=== PATIENT | male | born 1950 | race Caucasian/White ===

== ENCOUNTER → 2017-10-27 | Day surgery (SDC) | payer MEDICARE, OTHER ==
[~2017-10-27] VITALS: Ht 185.4 cm; Wt 150.9 kg
[~2017-10-27] MED LIST: BUPIVACAINE HCL PF 0.25% 30 ML VIAL ONE; CHLO25TA2 PO; CHLORHEXIDINE GLUCONATE 2 % 1 PACK (2 CLOTHS) TOPICAL PRN; CIPROFLOXACIN/DEXT 400 MG/200 ML IV SCH; DIVA500T3 PO; DULO1CAP3 PO; HYDR-3111 PO; LACTATED RINGER'S 1000 ML IV PRN; LIDOCAINE 1%/EPINEPHrine 1:100,000 SOLN 30 ML VIAL ONE; LIDOCAINE 2% JELLY 30 ML TUBE ONE; LISI-515 PO; METOPROLOL TARTRATE 25 MG TAB PO PRN; MIDAZOLAM HCL 2 MG/2 ML VIAL ONE; OMEP20TA93 PO; POVIDONE IODINE 5% (ANTISEPSIS KIT) 4 APPLICATIONS EACH NARE PRN; PROPOFOL 200 MG/20 ML AMP IV ONE; QUET1TAB9 PO; SODIUM CHLORID 0.9% 500 ML IV PRN; fentaNYL CITRATE 250 MCG/5 ML AMP ONE
[2017-10-27 06:41] LABS: AUTOMATED NEUTROPHIL # 5.1 TH/MM3 (1.8-7.7); BASOPHIL # 0.1 TH/MM3 (0-0.2); BASOPHIL % 1.2 % (0.0-2.0); EOSINOPHIL # 0.5 TH/MM3 (0-0.4); EOSINOPHIL % 4.8 % (0.0-4.0); HEMATOCRIT 40.5 % (39.0-51.0); HEMOGLOBIN 14.1 GM/DL (13.0-17.0); LYMPH % 29.7 % (9.0-44.0); LYMPHOCYTE # 2.9 TH/MM3 (1.0-4.8); MEAN CELL VOLUME 88.9 FL (80.0-100.0); MEAN CORPUSCULAR HEMOGLOBIN 31.1 PG (27.0-34.0); MEAN CORPUSCULAR HGB CONC 34.9 % (32.0-36.0); MEAN PLATELET VOLUME 10.3 FL (7.0-11.0); MONO % 11.4 % (0.0-8.0); MONOCYTE # 1.1 TH/MM3 (0-0.9); NEUT % 52.9 % (16.0-70.0); PLATELET COUNT 241 TH/MM3 (150-450); RED BLOOD COUNT 4.55 MIL/MM3 (4.50-5.90); RED CELL DISTRIBUTION WIDTH 13.7 % (11.6-17.2); WHITE BLOOD COUNT 9.7 TH/MM3 (4.0-11.0)
--- NOTE | 2017-10-27 08:20 | PD.OP ---
Operative Report Date of Surgery: Oct 27, 2017 Preoperative Diagnosis: Elevated PSA of 4.2 with PIRADS 4 lesion on MRI Postoperative Diagnosis: Same Procedure: Transrectal ultrasound with prostate needle biopsy Anesthesia: MAC Surgeon: Isac Florian Print Machine Operator(s): None Resident Surgeon: None Operation and Findings: 66-year-old male with elevated PSA of 4.2 and finding of a PI RADS for lesion involving the left mid gland noted on MRI. Decision was made for the patient undergo a prostate needle biopsy with transrectal ultrasound. Risk minutes were discussed preoperatively and he is willing to proceed. Patient received a fleets enema and preprocedure bites were given. The patient was brought to the operating room identified by myself as Charanjit Moran. He remained on the stretcher and was placed in the recumbent position. Volumetric measurements of the prostate were then taken with the volume of 31 cm. Calcifications were noted within the prostate gland. A 21 core biopsy specimen was then taken. Additional cores were taken on the left side of the gland. He tolerated the procedure well and was awoken and transferred currently in stable condition. He 'll follow-up in the office in a few weeks to review his pathology. Isac Florian DO Oct 27, 2017 08:20
[2017-10-27 09:10] VITALS: BP 107/54; PULSE 85; RESP 20; TEMP 97.8; O2SAT 94
--- NOTE | 2017-10-27 23:48 | EKG ---
Date Performed: 10/27/2017 Time Performed: 06:40:48 PTAGE: 66 years EKG: Sinus rhythm MODERATE INTRAVENTRICULAR CONDUCTION DELAY BORDERLINE ECG NO PREVIOUS TRACING DOCTOR: Joceline Almaraz Interpretating Date/Time 10/27/2017 23:48:03
== END | disposition home or self-care (01) ==
LOC: HSDC 05:43
PROVIDERS: ATTEND Urology
DX: C61 Malignant neoplasm of prostate (principal); N40.1 Benign prostatic hyperplasia with lower urinary tract symptoms; N13.8 Other obstructive and reflux uropathy; R35.1 Nocturia; R39.12 Poor urinary stream; I10 Essential (primary) hypertension
CPT/HCPCS: 00902; 55700; 85025; 93005; G0416; J0744; J2250; J3010; J7120